=== PATIENT | female | born 1945 | race Caucasian/White ===

== ENCOUNTER 2016-08-07 10:59 | Observation (INO) ==
--- NOTE | 2016-08-07 11:35 | Emergency Department Note ---
Disposition Clinical Impression: Dizziness, Frail elderly, Vomiting, Headache, Hypertension, Abnormal chest x- ray, Abnormal urinalysis, Renal insufficiency Disposition: Admitted As Inpatient Forms: ED Satisfaction Letter General Adult HPI - General Chief complaint: ED Dizziness Stated complaint: Dizzy Time Seen by Provider: 08/07/16 11:10 Source: patient, family Limitations: no limitations - History of Present Illness HPI Narrative: 71-year-old female reports the emergency department complaining of dizziness. She is here with 2 daughters. The patient usually lives alone at home and takes care of herself and has no problems taking care of her activities of daily living. She reports she became dizzy somewhat yesterday with an things resolved and she felt better. Today she became dizzy again, her daughter's report she cannot stand up or walk a straight line. There is no history of fall. She was recently treated for the flu, and secondarily was treated for sinusitis. She describes a frontal facial pressure in the forehead and paranasal areas. She thinks she has sinusitis. She is describes a headache in this area. There is tenderness stiffness or rash. No bradly fevers reported. No urinary symptoms chest pain shortness of breath or abdominal pain no diarrhea. When the patient became dizzy she threw up some nonbloody material earlier today. There is no history of weakness or numbness in the arms or legs no bowel or bladder problems. No problems moving the arms or legs independently no slurred speech confusion or seizure. There is no history of anticoagulation therapy at this time. There is no history of bleeding. The patient medical history only includes hysterectomy sinus infection and hypertension. She has no personal history of coronary disease diabetes or CVA. Pain Scale: 0 - Related Data Allergies Allergy/AdvReac Type Severity Reaction Status Date / Time Sulfa (Sulfonamide Allergy Hives Verified 08/07/16 11:05 Antibiotics) All systems ED: reviewed and negative except as stated. Past Medical History - Past Medical History Medical history: Reports: hypertension, other Psychiatric history: Reports: no psych history - Social History Smoking Status: Never smoker Smokeless Tobacco Status: No Alcohol use: Reports: none Drug use: Reports: none Physical Exam - General Limitations: no limitations General appearance: alert, in no apparent distress - Head Head exam: atraumatic, normocephalic, normal inspection - Eye Eye exam: Present: normal appearance, PERRL, EOMI. Absent: scleral icterus, conjunctival injection, nystagmus, miosis, mydriasis - ENT ENT exam: normal exam, normal oropharynx, mucous membranes moist, TM's normal bilaterally, normal external ear exam - Neck Neck exam: Present: normal inspection, full ROM, trachea midline - Chest Chest inspection: Present: symmetric chest wall rise. Absent: tenderness - Respiratory Respiratory exam: Present: normal lung sounds bilaterally. Absent: respiratory distress - Cardiovascular Cardiovascular exam: Present: regular rate, normal rhythm, normal heart sounds - Abdominal Exam Abdominal exam: Present: soft, Non-Tender. Absent: tenderness, distention, guarding, rebound, rigidity, normal bowel sounds, pulsatile mass - Extremities Exam Extremities exam: Present: normal inspection, full ROM, normal capillary refill. Absent: tenderness, pedal edema, joint swelling, calf tenderness - Expanded Lower Extremity Exam Lower leg exam: Absent: Homans' sign Neurovascular/Tendon exam: Absent: motor deficit, sensory deficit, tendon deficit, extremity cold to touch - Back Exam Back exam: Present: normal inspection, full ROM. Absent: tenderness, CVA tenderness (R), CVA tenderness (L), vertebral tenderness - Neurological Exam Neurological exam: Present: alert, oriented X3, CN II-XII intact. Absent: motor sensory deficit - Psychiatric Psychiatric exam: Present: normal affect, normal mood - Skin Skin exam: Present: warm, dry, intact, normal color. Absent: rash, cyanosis, diaphoresis, erythema, pallor, mottled Course Vital Signs Temperature 97.7 F 08/07/16 11:02 Pulse Rate 73 08/07/16 11:02 Respiratory Rate 16 08/07/16 11:02 Blood Pressure 182/93 08/07/16 11:02 O2 Sat by Pulse Oximetry 97 08/07/16 11:02 Temperature 97.7 F 08/07/16 11:02 Pulse Rate 69 08/07/16 14:56 Respiratory Rate 12 08/07/16 14:56 Blood Pressure 142/83 08/07/16 14:56 O2 Sat by Pulse Oximetry 98 08/07/16 14:56 Oxygen Delivery Oxygen Delivery Room Air Medical Decision Making - [facility] Narrative Medical decision making narrative: The patient is elderly, is usually very active, and is developed new onset dizziness which started yesterday that improved then got worse today. She has associated vomiting and is not ambulating well. The patient has a history of hypertension, she is over 7 years old, has an abnormal urinalysis, abnormal chest x-ray and seems to be significantly symptomatic from the dizziness standpoint. Based on her potential vascular risks and presentation, I thought it would be appropriate to admit the patient to the hospital. Aspirin has been ordered. She appears to be stable at this time. The patient does not necessarily have dizziness when turning her head thot-un-prnt or when sitting up. She has not been able to ambulate normally. Vertebrobasilar issues could be considered, cardiac arrhythmia could be considered, possible recurrent TIA is also in the differential. He does have an abnormal urinalysis but does not display markers consistent with sepsis. The patient has an abnormal chest x- ray but no evidence of heart failure based on laboratory and EKG testing as well as troponin and symptomatology. I reviewed the case with the hospitalist on-call who is accepted the patient to their care. Both daughters prefer admission versus discharge particularly, the patient is agreeable. - Lab Data Lab results reviewed: Yes I reviewed the patient's lab results. Result diagrams: 08/07/16 11:55 08/07/16 11:55 Lab Results 08/07/16 08/07/16 08/07/16 Range/Units 11:15 11:55 11:55 WBC 9.2 (4.3-11.1) K/mcL RBC 3.88 (3.82-4.97) M/mcL Hgb 11.5 (11.5-15.4) g/dL Hct 34.7 L (35.3-44.9) % MCV 89.4 (83.0-100.0) fL MCH 29.6 (28.0-33.3) pg MCHC 33.1 (31.6-35.5) g/dL RDW 13.2 (11.5-14.5) % Plt Count 309 (140-400) K/mcL MPV 10.9 (9.4-12.4) fL Immature Gran % 0.5 (0-4) % Seg Neutrophils % 74.7 % Lymphocytes % 16.9 % Monocytes % 6.7 % Eosinophils % 0.8 % Basophils % 0.4 % Neutrophils # 6.9 (1.6-8.9) K/mcL Lymphocytes # 1.6 (0.6-4.6) K/mcL Monocytes # 0.6 (0.0-1.3) K/mcL Eosinophils # 0.1 (0.0-0.6) K/mcL Basophils # 0.0 (0.0-0.2) K/mcL PT 11.4 (9.4-12.1) Seconds INR 1.1 Sodium (136-145) mEq/L Potassium (3.5-4.5) mEq/L Chloride (98-109) mEq/L Carbon Dioxide (19-29) mEq/L BUN (7-20) mg/dL Creatinine (0.57-1.11) mg/dL Est GFR ( Amer) (> 60) Est GFR (Non-Af Amer) (> 60) BUN/Creatinine Ratio (6-26) Glucose (70-99) mg/dL Calculated Osmolality (280-300) Lactic Acid (0.5-2.2) mmol/L Calcium (8.6-10.8) mg/dL Total Bilirubin (0.2-1.2) mg/dL Direct Bilirubin (0.0-0.5) mg/dL Indirect Bilirubin (0.0-1.2) mg/dL AST (5-34) Units/L ALT (0-55) Units/L Alkaline Phosphatase (38-126) Units/L Troponin I (0-0.03) ng/mL C-Reactive Protein (Less than 5) mg/L B-Natriuretic Peptide (0-100) pg/mL Serum Total Protein (6.0-8.3) g/dL Albumin (3.5-5.0) g/dL Globulin (2.4-3.5) g/dL Albumin/Globulin Ratio (1.1-2.2) Urine Color Yellow (Yellow) Urine Clarity Cloudy A (Clear) Urine pH 6.5 (5.0-8.0) pH Units Ur Specific [place] 1.015 (1.010-1.025) Urine Protein Negative (Neg-Trace) mg/dL Urine Glucose (UA) Normal (Normal) mg/dL Urine Ketones Negative (Negative) mg/dL Urine Blood Negative (Negative) Urine Nitrite Negative (Negative) Urine Bilirubin Negative (Negative) Urine Urobilinogen Normal (Normal) mg/dL Ur Leukocyte Esterase Moderate H (Negative) Urine Microscopic RBC 0-3 (0-3) per hpf Urine Microscopic WBC 5-15 H (0-3) per hpf Ur Squamous Epith Cells Many H (None-Few) per lpf Urine Bacteria None Seen (None-Few) per hpf Hyaline Casts Few (None-Few) per lpf Ur Culture Indicated? YES A (NO) 08/07/16 08/07/16 08/07/16 Range/Units 11:55 11:55 11:55 WBC (4.3-11.1) K/mcL RBC (3.82-4.97) M/mcL Hgb (11.5-15.4) g/dL Hct (35.3-44.9) % MCV (83.0-100.0) fL MCH (28.0-33.3) pg MCHC (31.6-35.5) g/dL RDW (11.5-14.5) % Plt Count (140-400) K/mcL MPV (9.4-12.4) fL Immature Gran % (0-4) % Seg Neutrophils % % Lymphocytes % % Monocytes % % Eosinophils % % Basophils % % Neutrophils # (1.6-8.9) K/mcL Lymphocytes # (0.6-4.6) K/mcL Monocytes # (0.0-1.3) K/mcL Eosinophils # (0.0-0.6) K/mcL Basophils # (0.0-0.2) K/mcL PT (9.4-12.1) Seconds INR Sodium 138 (136-145) mEq/L Potassium 4.5 (3.5-4.5) mEq/L Chloride 105 (98-109) mEq/L Carbon Dioxide 20 (19-29) mEq/L BUN 13 (7-20) mg/dL Creatinine 1.24 H (0.57-1.11) mg/dL Est GFR ( Amer) 51 L (> 60) Est GFR (Non-Af Amer) 42 L (> 60) BUN/Creatinine Ratio 10 (6-26) Glucose 127 H (70-99) mg/dL Calculated Osmolality 288 (280-300) Lactic Acid 1.2 (0.5-2.2) mmol/L Calcium 10.0 (8.6-10.8) mg/dL Total Bilirubin 0.4 (0.2-1.2) mg/dL Direct Bilirubin 0.2 (0.0-0.5) mg/dL Indirect Bilirubin 0.2 (0.0-1.2) mg/dL AST 22 (5-34) Units/L ALT 14 (0-55) Units/L Alkaline Phosphatase 99 (38-126) Units/L Troponin I 0.01 (0-0.03) ng/mL C-Reactive Protein 3 (Less than 5) mg/L B-Natriuretic Peptide (0-100) pg/mL Serum Total Protein 7.5 (6.0-8.3) g/dL Albumin 4.0 (3.5-5.0) g/dL Globulin 3.5 (2.4-3.5) g/dL Albumin/Globulin Ratio 1.1 (1.1-2.2) Urine Color (Yellow) Urine Clarity (Clear) Urine pH (5.0-8.0) pH Units Ur Specific [place] (1.010-1.025) Urine Protein (Neg-Trace) mg/dL Urine Glucose (UA) (Normal) mg/dL Urine Ketones (Negative) mg/dL Urine Blood (Negative) Urine Nitrite (Negative) Urine Bilirubin (Negative) Urine Urobilinogen (Normal) mg/dL Ur Leukocyte Esterase (Negative) Urine Microscopic RBC (0-3) per hpf Urine Microscopic WBC (0-3) per hpf Ur Squamous Epith Cells (None-Few) per lpf Urine Bacteria (None-Few) per hpf Hyaline Casts (None-Few) per lpf Ur Culture Indicated? (NO) 08/07/16 Range/Units 11:55 WBC (4.3-11.1) K/mcL RBC (3.82-4.97) M/mcL Hgb (11.5-15.4) g/dL Hct (35.3-44.9) % MCV (83.0-100.0) fL MCH (28.0-33.3) pg MCHC (31.6-35.5) g/dL RDW (11.5-14.5) % Plt Count (140-400) K/mcL MPV (9.4-12.4) fL Immature Gran % (0-4) % Seg Neutrophils % % Lymphocytes % % Monocytes % % Eosinophils % % Basophils % % Neutrophils # (1.6-8.9) K/mcL Lymphocytes # (0.6-4.6) K/mcL Monocytes # (0.0-1.3) K/mcL Eosinophils # (0.0-0.6) K/mcL Basophils # (0.0-0.2) K/mcL PT (9.4-12.1) Seconds INR Sodium (136-145) mEq/L Potassium (3.5-4.5) mEq/L Chloride (98-109) mEq/L Carbon Dioxide (19-29) mEq/L BUN (7-20) mg/dL Creatinine (0.57-1.11) mg/dL Est GFR ( Amer) (> 60) Est GFR (Non-Af Amer) (> 60) BUN/Creatinine Ratio (6-26) Glucose (70-99) mg/dL Calculated Osmolality (280-300) Lactic Acid (0.5-2.2) mmol/L Calcium (8.6-10.8) mg/dL Total Bilirubin (0.2-1.2) mg/dL Direct Bilirubin (0.0-0.5) mg/dL Indirect Bilirubin (0.0-1.2) mg/dL AST (5-34) Units/L ALT (0-55) Units/L Alkaline Phosphatase (38-126) Units/L Troponin I (0-0.03) ng/mL C-Reactive Protein (Less than 5) mg/L B-Natriuretic Peptide 43 (0-100) pg/mL Serum Total Protein (6.0-8.3) g/dL Albumin (3.5-5.0) g/dL Globulin (2.4-3.5) g/dL Albumin/Globulin Ratio (1.1-2.2) Urine Color (Yellow) Urine Clarity (Clear) Urine pH (5.0-8.0) pH Units Ur Specific [place] (1.010-1.025) Urine Protein (Neg-Trace) mg/dL Urine Glucose (UA) (Normal) mg/dL Urine Ketones (Negative) mg/dL Urine Blood (Negative) Urine Nitrite (Negative) Urine Bilirubin (Negative) Urine Urobilinogen (Normal) mg/dL Ur Leukocyte Esterase (Negative) Urine Microscopic RBC (0-3) per hpf Urine Microscopic WBC (0-3) per hpf Ur Squamous Epith Cells (None-Few) per lpf Urine Bacteria (None-Few) per hpf Hyaline Casts (None-Few) per lpf Ur Culture Indicated? (NO) - Radiology Data Radiology results reviewed: Yes I reviewed the patient's radiology results.
[2016-08-07] MEDS ORDERED: 0.9 % Sodium Chloride 1,000 ML IVC SCH (11:45)
[2016-08-07 11:50] LABS: Bilirubin,Urine Negative (Negative); Blood,Urine Negative (Negative); Clarity,Urine Cloudy (Clear); Color,Urine Yellow (Yellow); Glucose,Urine (UA) Normal (Normal); Ketones,Urine Negative (Negative); Leukocyte Esterase,Urine Moderate (Negative); Nitrite,Urine Negative (Negative); PH,Urine 6.5 pH Units (5.0-8.0); Protein,Urine Negative (Neg-Trace); Specific Gravity,Urine 1.015 (1.010-1.025); Urobilinogen,Urine Normal (Normal)
[2016-08-07 11:52] LABS: Bacteria,Urine None Seen per hpf (None-Few); Hyaline Casts,Urine Few per lpf (None-Few); Squamous Epithelial Cell,Urine Many per lpf (None-Few)
[2016-08-07 11:54] LABS: RBC,Urine 0-3 per hpf (0-3)
[2016-08-07 12:13] LABS: Basophils % 0.4 %; Eosinophils # 0.1 K/mcL (0.0-0.6); Eosinophils % 0.8 %; Hematocrit 34.7 % (35.3-44.9); Hemoglobin 11.5 g/dL (11.5-15.4); Immature Granulocytes % 0.5 % (0-4); Lymphocytes # 1.6 K/mcL (0.6-4.6); Lymphocytes % 16.9 %; Mean Corpuscular HGB Conc 33.1 g/dL (31.6-35.5); Mean Corpuscular Hemoglobin 29.6 pg (28.0-33.3); Mean Corpuscular Volume 89.4 fL (83.0-100.0); Mean Platelet Volume 10.9 fL (9.4-12.4); Monocytes # 0.6 K/mcL (0.0-1.3); Monocytes % 6.7 %; Neutrophils # 6.9 K/mcL (1.6-8.9); Platelet Count 309 K/mcL (140-400); Red Blood Count 3.88 M/mcL (3.82-4.97); Red Cell Distribution Width 13.2 % (11.5-14.5); Segmented Neutrophils % 74.7 %
[2016-08-07 12:15] LABS: INR 1.1; Prothrombin Time 11.4 Seconds (9.4-12.1)
[2016-08-07 12:33] LABS: Albumin/Globulin Ratio 1.1 (1.1-2.2); Bilirubin,Direct 0.2 mg/dL (0.0-0.5); Bilirubin,Indirect 0.2 mg/dL (0.0-1.2); Bilirubin,Total 0.4 mg/dL (0.2-1.2); Globulin 3.5 g/dL (2.4-3.5); Potassium 4.5 mEq/L (3.5-4.5); Total Protein 7.5 g/dL (6.0-8.3)
[2016-08-07] MEDS ORDERED: Aspirin 325 MG TABLET PO ONE (15:07)
[2016-08-07] MEDS ORDERED: Naloxone 0.4 MG/ML INJ IVP PRN (16:30)
[2016-08-07] MEDS ORDERED: Mag Hydrox/Al Hydrox/Simeth 30 ML UDC PO PRN (16:31)
[2016-08-07] MEDS ORDERED: MOM Conc 10 ML UD.LIQ PO PRN (16:31)
[2016-08-07] MEDS ORDERED: *HR* HYDROcodone/Acet 5/325 mg TABLET PO PRN (16:31)
[2016-08-07] MEDS: 0.9 % Sodium Chloride 1,000 ML IVC SCH (16:55)
--- NOTE | 2016-08-07 18:40 | Internal Med History&Physical ---
<Breanna Ramirez Williams - Last Filed: 08/07/16 19:14> Date of Encounter: 08/07/16 Time of Encounter: 17:25 Assessment and Plan (1) Dizziness Current visit: Yes Status: Acute Pt has been treated within the last 10 days for sinusitis with amoxicillin, however symptoms did not improve. She still has PND and some mild frontal sinus pressure. TM have good light reflex cally and are without a fluid level. Will start patient on Loratadine 10mg po and Flonase 50mcg/spray once daily. CT does not show sinusitis or acute intracranial abnormality, so there is no real need for further treatment with antibiotics. Pt has mitral valve stenosis and has not had an echo for at least 3 years, and family questioned about carotid dopplers. Echo carotid dopplers Claritin/Flonase Indirect Sales Exec labs Monitor VS (2) Abnormal chest x-ray Current visit: Yes Status: Chronic Chest xray today shows mild enlargement of the cardiac silhouette, but we have no prior studies to compare this to. Pt is unaware of this finding previously. Plan as above (3) Hypertension Current visit: Yes Status: Acute Stable. Continue Norvasc 5mg po daily Lisinopril 40mg po daily Toprol XL 25mg PO DAILY Monitor VS q4h Telemetry Qualifiers: Hypertension type: essential hypertension Qualified Code(s): I10 - Essential (primary) hypertension (4) Vomiting Current visit: Yes Status: Acute One episode of vomiting today due to dizziness. Prn Zofran ordered. Qualifiers: Vomiting type: unspecified Vomiting Intractability: non-intractable Nausea presence: with nausea Qualified Code(s): R11.2 - Nausea with vomiting, unspecified (5) Mitral valve stenosis Current visit: Yes Status: Acute Pt sees cardiology at [facility], but has not been there for at least 3 years. Echo ordered. Pt denies cp or sob. Chest xray today shows mild enlargement of the cardiac silhouette, but there are no prior studies to compare it to. Qualifiers: Cardiac valve disease etiology: nonrheumatic Qualified Code(s): I34.2 - Nonrheumatic mitral (valve) stenosis Internal Medicine - H&P: HPI Chief complaint: dizziness x 2 days Plans for Post Hospital Care: Home History of present illness: Ms. Soriano is a 71 year old female with a history of HTN and mitral valve stenosis. She sees cardiology at [facility], but has not been there for at least 3 years. Pt presents to ED today with c/o dizziness x 2 days and vomiting x 1 today due to dizziness. All imaging studies done in ED are negative, except CXR shows mild enlargement of cardiac silhouette, but no prior studies to compare it to. Pt was recently treated for sinusitis with amoxicillin by PCP. She has had PND, but denies frontal sinus tenderness, cough, castro, sob, or chest pain, no peripheral edema. Cally TM with good light reflex and no fluid level. Past Med Surg Social Fam HX - Past Medical History Medical history: hypertension, other Psychiatric history: no psych history - Social History Smoking Status: Never smoker Smokeless Tobacco Status: No Alcohol use: none Drug use: none - Family History Mother Living Status: Age at : 71 Cause of : CA Hx Family Cardiac Disorders: Yes (CA, HTN) Hx Family Respiratory Disorders: No Hx Family Cancer: No Hx Family GI Disorders: No Hx Family Genitourinary Disorders: No Hx Family Endocrine Disorder: Yes (DM) Hx Family Musculoskeletal Disorders: No Hx Family Neuromuscular Disorders: No Hx Family Neurologic Disorders: No Hx Family HEENT Disorders: No Hx Family Autoimmune Disorders: No Hx Family Reproductive Disorders: No Hx Family Psychosocial Disorders: No Hx Family Medical Disorders: No Father Living Status: Age at : 49 Cause of : heart troule Hx Family Cardiac Disorders: Yes (dropsy) Hx Family Respiratory Disorders: No Hx Family Cancer: No Hx Family GI Disorders: No Hx Family Genitourinary Disorders: No Hx Family Endocrine Disorder: No Hx Family Musculoskeletal Disorders: No Hx Family Neuromuscular Disorders: No Hx Family Neurologic Disorders: No Hx Family HEENT Disorders: No Hx Family Autoimmune Disorders: No Hx Family Reproductive Disorders: No Hx Family Psychosocial Disorders: No Hx Family Medical Disorders: No Internal Medicine - H&P: Meds Amlodipine [Norvasc] 5 mg PO DAILY 08/07/16 [History] Aspirin [Lo-Dose Aspirin EC] 81 mg PO DAILY 08/07/16 [History] Lisinopril [Zestril] 40 mg PO DAILY 08/07/16 [History] Metoprolol XL (24 HR) Succ [Toprol XL] 25 mg PO DAILY 08/07/16 [History] Vitamin E Acetate [Vitamin E] 400 unit PO DAILY 08/07/16 [History] Allergies Sulfa (Sulfonamide Antibiotics) Allergy (Verified 08/07/16 11:05) Hives All Systems PM: A 10-system review of systems was performed and is negative for pertinent findings except as documented above in the HPI. - Constitutional Constitutional: no chills, no fatigue, no fever(s), no falls, no weakness - EENT Eyes: no blurry vision, no discharge Nose, mouth and throat: post-nasal drip, sinus pain, sinus pressure, no dental pain, no epistaxis, no facial pain, no hoarseness, no nasal discharge, no nasal obstruction, no sore throat - Cardiovascular Cardiovascular ROS IM: no chest pain, no dyspnea, no edema, no palpitations - Respiratory Respiratory: no chest congestion, no excessive phlegm production, no change in phlegm color, no pain with cough - Gastrointestinal Gastrointestinal: nausea, vomiting, no diarrhea - Genitourinary Genitourinary: no dysuria, no urinary frequency, no urinary hesitancy, no urinary incontinence, no urinary urgency - Neurological Neurological ROS: dizziness - Constitutional Vitals: Temp Pulse Resp BP Pulse Ox 97.9 F 67 18 155/77 96 08/07/16 16:35 08/07/16 16:35 08/07/16 16:35 08/07/16 16:35 08/07/16 16:35 General appearance: Present: cooperative, A&O X 3, pleasant, no acute distress - Head Head exam: Present: atraumatic, normal inspection - Eye Eye exam: Present: normal appearance, PERRL, conjuntiva pink. Absent: nystagmus - ENT ENT exam: Present: mucous membranes moist, normal exam, normal oropharynx, TM's normal bilaterally - Neck Neck exam general surgery: Present: normal inspection. Absent: lymphadenopathy , tenderness - Respiratory Respiratory exam: Absent: chest wall tenderness, decreased breath sounds, rhonchi, wheezes - Cardiovascular Cardiovascular exam: Present: RRR, +S1, +S2 - GI/Abdominal GI/Abdominal exam: Present: normal bowel sounds, soft. Absent: tenderness - Extremities Exam Extremities exam: Present: full ROM, normal capillary refill, normal inspection , warm, radial pulses palpable and symetrical. Absent: calf tenderness, cyanotic, joint swelling, pedal edema, tenderness - Neurological Exam Neurological exam: Present: alert, oriented X3, strengths equal and symetr throughout Internal Med - H&P Results - Labs CBC & Chem 7: 08/07/16 11:55 08/07/16 11:55 <FlakoAngela E - Last Filed: 08/08/16 11:14> Date of Encounter: 08/08/16 Internal Medicine - H&P: HPI History of present illness: Ms. Soriano is a 71 year old female All Systems PM: A 10-system review of systems was performed and is negative for pertinent findings except as documented above in the HPI. - Constitutional Vitals: Temp Pulse Resp BP Pulse Ox 98.1 F 59 16 144/76 98 08/08/16 06:59 08/08/16 06:59 08/08/16 06:59 08/08/16 06:59 08/08/16 06:59 Internal Med - H&P Results - Labs CBC & Chem 7: 08/08/16 04:51 08/08/16 04:51 Labs: Short CBC 08/08/16 Range/Units 04:51 WBC 6.5 (4.3-11.1) K/mcL Hgb 10.1 L (11.5-15.4) g/dL Hct 30.4 L (35.3-44.9) % Plt Count 294 (140-400) K/mcL Neutrophils # 3.2 (1.6-8.9) K/mcL BMP 08/08/16 04:51 Sodium 142 Potassium 4.2 Chloride 112 H Carbon Dioxide 21 BUN 13 Creatinine 1.16 H Glucose 86 Calcium 9.3 - Attending Attestation I examined this patient and reviewed laboratory, imaging and all diagnostic data 08/07/16. My medical decision-making was reviewed with LOU Ramirez. I agree with the documented findings, disposition and treatment plan as described above. 71-year-old female with past medical history of hypertension and mitral valve stenosis who developed severe dizziness, difficulty in ambulation and one episode of vomiting. During my exam patient was imbalance while ambulating. CT of the head was negative. Patient was just recently prescribed gabapentin for peripheral neuropathy, she has started taking it last Tuesday then Tuesday and last dose was Tuesday. She also took amoxicillin for 5 days due to a sinus infection, last dose Tuesday. Her symptoms could be secondary to mild dehydration due to up sinusitis +/- recent use of gabapentin. Will continue supportive therapy with IV fluids, meclizine, loratadine and Flonase. Check Doppler of carotids and echocardiogram. PT/OT.
[2016-08-08 05:40] LABS: Basophils # 0.1 K/mcL (0.0-0.2); Basophils % 0.9 %; Eosinophils # 0.2 K/mcL (0.0-0.6); Eosinophils % 2.8 %; Hematocrit 30.4 % (35.3-44.9); Hemoglobin 10.1 g/dL (11.5-15.4); Immature Granulocytes % 0.3 % (0-4); Lymphocytes # 2.4 K/mcL (0.6-4.6); Lymphocytes % 36.2 %; Mean Corpuscular HGB Conc 33.2 g/dL (31.6-35.5); Mean Corpuscular Hemoglobin 29.7 pg (28.0-33.3); Mean Corpuscular Volume 89.4 fL (83.0-100.0); Mean Platelet Volume 11.3 fL (9.4-12.4); Monocytes # 0.7 K/mcL (0.0-1.3); Monocytes % 10.9 %; Neutrophils # 3.2 K/mcL (1.6-8.9); Platelet Count 294 K/mcL (140-400); Red Cell Distribution Width 13.2 % (11.5-14.5); Segmented Neutrophils % 48.9 %
[2016-08-08 05:54] LABS: Calcium 9.3 mg/dL (8.6-10.8); Potassium 4.2 mEq/L (3.5-4.5)
[2016-08-08] MEDS: Fluticasone Propionate Nasal 50 MCG/SPRAY BOTTLE NS SCH (09:19)
[2016-08-08] MEDS: Metoprolol XL (24 HR) Succ 25 MG TAB.ER.24H PO SCH (09:20)
[2016-08-08] MEDS: Aspirin Enteric Coated 81 MG Tablet PO SCH (09:20)
[2016-08-08] MEDS: Lisinopril 20 MG TABLET PO SCH (09:20)
[2016-08-08] MEDS: amLODIPine 5 MG TABLET PO SCH (09:20)
[2016-08-08] MEDS: Loratadine 10 MG TABLET PO SCH (09:20)
[2016-08-08] MEDS: Acetaminophen 325 MG TABLET PO PRN ×2 (09:23→19:29)
--- NOTE | 2016-08-08 12:59 | ECHO - Doppler Report ---
Echocardiogram Name: Gloria Soriano Date of Study: 08/08/2016 Date: 1945 Ht: 62.0 in Medical Record#: [id number] Age: 71 Wt: 149.0 lb Gender: Female BSA: 1.69 Order #: [id number] Location: [facility] Room #: [id number] Reading Physician: Deloris Covington DO Batch Blender: Laquita Ness RVT, [facility] Ordering Physician: Breanna Ramirez CNP Primary Physician: Cindy Rashid DO Indications: dizziness Impressions: LVEF 65%. Normal left ventricular size and systolic function. There is evidence of mild diastolic dysfunction of the left ventricle. Normal right ventricular size and function. Mild tricuspid regurgitation. No pulmonary hypertension. Left Ventricular Wall Motion: Rest Echo Findings All wall segments showed normal motion. Findings: Study Quality * Technically adequate exam. ECG Findings * Normal sinus rhythm. Left Ventricle * LVEF 65%. * Mild left ventricular diastolic dysfunction. * Normal LV chamber size, wall thickness and function. Left Atrium * Normal left atrial size. Mitral Valve * Normal mitral valve structure. * No mitral regurgitation. * No mitral stenosis. Aortic Valve * No aortic regurgitation. * Trileaflet aortic valve. * Normal aortic valve structure. * No aortic stenosis. Tricuspid Valve * Normal tricuspid valve structure. * Mild tricuspid regurgitation. * Estimated RA pressure is 3 mmHg. * Estimated RVSP is 25 mmHg. * No pulmonary hypertension. Pulmonic Valve * Pulmonic valve is not well visualized. * No pulmonic stenosis. * Trace pulmonic regurgitation. Pulmonary Artery * Pulmonary artery not well visualized. Right Ventricle * Normal right ventricular structure and function. Right Atrium * Normal right atrial size. Interatrial Septum * No evidence of PFO by color Doppler. IVC * Normal IVC dimensions and inspiratory collapse. Pericardium * There is no pericardial effusion present. Aorta * Normally sized aortic root. History Hypertension Family History of CAD Measurements: BP: 144/ 76 2D Normal Values RVIDd: 3.10 cm <2.7 cm IVSd: 1.20 cm 0.6 - 1.0 cm LVIDd: 3.80 cm 3.7 - 5.6 cm LVPWd: .90 cm 0.6 - 1.1 cm LVIDs: 3.00 cm 1.5 - 3.6 cm AO: 2.60 cm < 4.0 cm LA: 3.60 cm 2.0 - 4.0cm %FS: 21.10 cm >25 % LA volume: 45 Mitral Valve Dec Time:335.00 msec Peak E:.88 m/sec Peak A:.71 m/sec E/A Ratio:1.2 Peak E' Lat Valentino:8.19 cm/s Peak E' Med Valentino:7.12 cm/s E/E' Lat Ratio:10.8 E/E' Med Ratio:12.4 Tricuspid Valve TV Regurg Peak Grad: 22.00mmHg TV Regurg Peak Valentino: 2.33m/sec Updated by Deloris Covington on 08/08/2016 12:52:59 PM electronically signed on 08/08/2016 12:53:56 PM with status of Final Wall Motion Faustin: 1=Normal, 2=Hypokinesis, 3=Akinesis, 4=Dyskinesis, 5=Aneurysmal, 6=Hyperkinetic, X=Not Visualized (Blank)=Missing
[2016-08-08] MEDS: 0.9 % Sodium Chloride 1,000 ML IVC SCH (15:52)
--- NOTE | 2016-08-08 16:03 | Internal Med Progress Note ---
Date of Encounter: 08/08/16 Time of Encounter: 09:00 - Assessment and plan (1) DVT prophylaxis Current Visit: Yes Status: Acute Assessment and plan: Heparin subcutaneously (2) Dizziness Current Visit: Yes Status: Acute Assessment and plan: Etiology is undetermined. We will continue closely monitor patient with continuous cardiac monitoring to rule out arrhythmia. Echo result are remarkable. Carotid duplex shows lt side stenosis, vascular consult. (3) Hypertension Current Visit: Yes Status: Acute Assessment and plan: BP is stable continue home medications Qualifiers: Hypertension type: essential hypertension Qualified Code(s): I10 - Essential (primary) hypertension (4) Mitral valve stenosis Current Visit: Yes Status: Acute Assessment and plan: No shown on repeated Echo. Pt is asymptomatic. Qualifiers: Cardiac valve disease etiology: nonrheumatic Qualified Code(s): I34.2 - Nonrheumatic mitral (valve) stenosis (5) Renal insufficiency Current Visit: Yes Status: Acute Assessment and plan: Baseline Cr is unknown. Will encourage hydration and f/u renal function. (6) Carotid stenosis Current Visit: Yes Status: Acute Assessment and plan: Vascular consult. Qualifiers: Laterality: left Qualified Code(s): I65.22 - Occlusion and stenosis of left carotid artery - Time Spent With Patient 25 - 35 minutes - Subjective Interval history: Patient is a 71-year-old female admitted for dizziness. Her past medical history is significant for hypertension and mitral valve stenosis. Patient was seen and examined. She is awake alert, oriented 3. Denies dizziness, lightheadedness, or vertigo. No chest pain, no shortness of breath. Vitals are stable. Echo done, not shown significant MS. duplex carotid shows left side 60-79% stenosis. Vascular surgery consult was called. Will continue closely monitor patient to rule out arrhythmia. - Constitutional Vitals: Temp Pulse Resp BP Pulse Ox 98.1 F 65 16 110/61 96 08/08/16 15:16 08/08/16 15:16 08/08/16 15:16 08/08/16 15:16 08/08/16 15:16 General appearance: Present: cooperative, A&O X 3, pleasant, no acute distress - Head Head exam: Present: atraumatic, normocephalic - Eye Eye exam: Present: PERRL, conjuntiva pink, sclera anicteric Pupils: Present: PERRL - Neck Neck exam general surgery: Present: supple, trachea midline. Absent: lymphadenopathy - Respiratory Respiratory exam: Present: CTAB. Absent: accessory muscle use, rales, rhonchi, wheezes - Cardiovascular Cardiovascular exam: Present: RRR, +S1, +S2. Absent: diastolic murmur, gallop, rubs, systolic murmur - GI/Abdominal GI/Abdominal exam: Present: normal bowel sounds, soft, no peritoneal signs. Absent: distended, tenderness - Extremities Exam Extremities exam: Present: warm, radial pulses palpable and symetrical. Absent : calf tenderness, cyanotic, pedal edema - Neurological Exam Neurological exam: Present: CN II-XII intact, oriented X3, no focal deficits. Absent: pronater drift, facial droop, speech deficit - Skin Skin exam: Present: dry, intact Internal Medicine: Result - Labs CBC & Chem 7: 08/08/16 04:51 08/08/16 04:51 Labs: Short CBC 08/08/16 Range/Units 04:51 WBC 6.5 (4.3-11.1) K/mcL Hgb 10.1 L (11.5-15.4) g/dL Hct 30.4 L (35.3-44.9) % Plt Count 294 (140-400) K/mcL Neutrophils # 3.2 (1.6-8.9) K/mcL BMP 08/08/16 04:51 Sodium 142 Potassium 4.2 Chloride 112 H Carbon Dioxide 21 BUN 13 Creatinine 1.16 H Glucose 86 Calcium 9.3 - ABG Interpretation ABG results: PT/INR, D-dimer PT 11.4 Seconds (9.4-12.1) 08/07/16 11:55 Consult Discharge Plan - Plan Referrals: Cindy Rashid DO [Primary Care Provider] -
[2016-08-08] MEDS: *HR* Heparin 5,000 UNIT/ML VIAL SQ SCH ×2 (17:43→18:48)
[2016-08-09 05:53] LABS: Basophils # 0.1 K/mcL (0.0-0.2); Basophils % 0.8 %; Eosinophils # 0.3 K/mcL (0.0-0.6); Eosinophils % 4.2 %; Hematocrit 30.9 % (35.3-44.9); Hemoglobin 10.3 g/dL (11.5-15.4); Immature Granulocytes % 0.3 % (0-4); Lymphocytes # 2.4 K/mcL (0.6-4.6); Lymphocytes % 32.8 %; Mean Corpuscular HGB Conc 33.3 g/dL (31.6-35.5); Mean Corpuscular Volume 90.1 fL (83.0-100.0); Mean Platelet Volume 11.8 fL (9.4-12.4); Monocytes # 0.8 K/mcL (0.0-1.3); Monocytes % 10.4 %; Neutrophils # 3.8 K/mcL (1.6-8.9); Platelet Count 285 K/mcL (140-400); Red Blood Count 3.43 M/mcL (3.82-4.97); Red Cell Distribution Width 13.2 % (11.5-14.5); Segmented Neutrophils % 51.5 %
[2016-08-09 06:03] LABS: Calcium 9.3 mg/dL (8.6-10.8); Potassium 4.3 mEq/L (3.5-4.5)
--- NOTE | 2016-08-09 07:19 | Carotid Imaging Report ---
Carotid Duplex Patient Name:Gloria Soriano Order Number:[id number] Procedure Date:08/08/2016 Date:1945ge:71 yrs Gender:Female Lt BP:144 / 76 mmHg Location:[facility] Room #: 3B11 Dowel Pin Man:Laquita Ness, RVT, RDCS Referring MD:Breanna Ramirez CNP splitter hand:DO Agapito Monae MD:Salty Amado MD Primary Indications:dizziness Risk Factors Yes/No Hypertension Yes Smoking Current No Impressions: The right carotid artery has minimal plaque throughout. The left internal carotid artery has a 60-79% stenosis. Recommendations: Risk factor reduction. Further evaluation recommended if clinically indicated. Follow-up carotid duplex in 1 year. Findings Carotid Duplex: Right: The right proximal common carotid artery has a PSV of 108 cm/s and a EDV of 17 cm/s. The right mid common carotid artery has a PSV of 101 cm/s and a EDV of 18 cm/s. The right distal common carotid artery has a PSV of 98 cm/s and a EDV of 21 cm/s. There is nonstenotic plaque in the right bifurcation with a PSV of 97 cm/s and a EDV of 27 cm/s. There is smooth heterogeneous plaque. There is nonstenotic plaque in the right proximal internal carotid artery with a PSV of 92 cm/s and a EDV of 24 cm/s. There is smooth heterogeneous plaque. The right mid internal carotid artery has a PSV of 83 cm/s and a EDV of 27 cm/s. The right distal internal carotid artery has a PSV of 63 cm/s and a EDV of 19 cm/s. The right eca has a PSV of 134 cm/s and a EDV of 20 cm/s. The right vertebral artery has a PSV of 56 cm/s and a EDV of 17 cm/s. Left: The left proximal common carotid artery has a PSV of 98 cm/s and a EDV of 24 cm/s. The left mid common carotid artery has a PSV of 81 cm/s and a EDV of 19 cm/s. The left distal common carotid artery has a PSV of 85 cm/s and a EDV of 23 cm/s. There is nonstenotic plaque in the left bifurcation with a PSV of 65 cm/s and a EDV of 17 cm/s. There is smooth heterogeneous plaque. There is 40-59% stenosis in the left proximal internal carotid artery with a PSV of 144 cm/s and a EDV of 31 cm/s. There is smooth, heterogeneous calcified plaque. The left mid internal carotid artery has a PSV of 85 cm/s and a EDV of 25 cm/s. There is 60-79% stenosis in the left distal internal carotid artery with a PSV of 169 cm/s and a EDV of 50 cm/s. There is smooth homogeneous plaque. The left eca has a PSV of 115 cm/s and a EDV of 26 cm/s. The left vertebral artery has a PSV of 30 cm/s and a EDV of 10 cm/s. Carotid Results Right PSV EDV Assessment Proximal CCA 108 17 Normal Mid CCA 101 18 Normal Distal CCA 98 21 Normal Bifurcation 97 27 Non Stenotic Plaque Proximal ICA 92 24 Non Stenotic Plaque Mid ICA 83 27 Normal Distal ICA 63 19 Normal ECA 134 20 Normal Vertebral Artery 56 17 Normal Left PSV EDV Assessment Proximal CCA 98 24 Normal Mid CCA 81 19 Normal Distal CCA 85 23 Normal Bifurcation 65 17 Non Stenotic Plaque Proximal ICA 144 31 40-59% stenosis Mid ICA 85 25 Normal Distal ICA 169 50 60-79% stenosis ECA 115 26 Normal Vertebral Artery 30 10 Normal Ratio's Right ICA/CCA Ratio: 0.82 Left ICA/CCA Ratio: 2.09 Updated by Salty Amado MD on 08/09/2016 7:13:03 AM electronically signed on 08/09/2016 7:13:37 AM with status of Final
[2016-08-09] MEDS: *HR* Heparin 5,000 UNIT/ML VIAL SQ SCH (07:33)
[2016-08-09 08:11] VITALS: BP 153/82
--- NOTE | 2016-08-09 08:25 | Vascular/Endovasc Consult Note ---
Date of Encounter: 08/09/16 Time of Encounter: 07:30 Assessment and Plan (1) Carotid stenosis Status: Chronic The patient has had episodes of intermittent headaches associated with dizziness. She reports that her symptoms can be disabling at times. She denies symptoms of CVA, TIA or amaurosis fugax. She has a LICA 60-79% stenosis. She was counseled regarding atherosclerotic risk factor reduction. She was advised to continue with daily ASA. SHe was instructed to seek medical attenion if her symptoms return or if she experiences signs or symptoms of CVA, TIA or amaurosis fugax. Continued surveillence is recommended. She will follow -up in clinic in 6 months with a carotid duplex. She is okay for discharge from a vascular surgery perspective. Qualifiers: Laterality: left Qualified Code(s): I65.22 - Occlusion and stenosis of left carotid artery (2) Hypertension Status: Chronic The patient was counseled regarding aatherosclerotic risk factor reduction. Qualifiers: Hypertension type: essential hypertension Qualified Code(s): I10 - Essential (primary) hypertension (3) Mitral valve stenosis Status: Chronic Qualifiers: Cardiac valve disease etiology: nonrheumatic Qualified Code(s): I34.2 - Nonrheumatic mitral (valve) stenosis - History of Present Illness Consult date: 08/09/16 Requesting physician: Delmis Horan Consult reason: Carotid stenosis Chief complaint: Dizziness History of present illness: Ms. Soriano is a 71 year old female with a history of hypertension and mitral valve stenosis who presented to [facility] with a headache and severe disabling dizziness and vomiting. She as admitted and treated for sinusitis. As part of her evaluation, she underwent a carotid duplex. She was noted to have significant stenosis and vascular surger was consulted for further evaluation. The patient states that since admission her dizziness has subsided. She denies any prior episodes of CVA, TIA o amaurosis fugax. She denies any speech deficits or visual disturbances. She denies any chest pain or shortness of breath. Past Med Surg Social Fam HX - Past Medical History Medical history: hypertension, other Psychiatric history: no psych history - Social History Smoking Status: Never smoker Smokeless Tobacco Status: No Alcohol use: none Drug use: none - Family History Mother Living Status: Age at : 71 Cause of : AL Hx Family Cardiac Disorders: Yes (AL, HTN) Hx Family Respiratory Disorders: No Hx Family Cancer: No Hx Family GI Disorders: No Hx Family Genitourinary Disorders: No Hx Family Endocrine Disorder: Yes (DM) Hx Family Musculoskeletal Disorders: No Hx Family Neuromuscular Disorders: No Hx Family Neurologic Disorders: No Hx Family HEENT Disorders: No Hx Family Autoimmune Disorders: No Hx Family Reproductive Disorders: No Hx Family Psychosocial Disorders: No Hx Family Medical Disorders: No Father Living Status: Age at : 49 Cause of : heart troule Hx Family Cardiac Disorders: Yes (dropsy) Hx Family Respiratory Disorders: No Hx Family Cancer: No Hx Family GI Disorders: No Hx Family Genitourinary Disorders: No Hx Family Endocrine Disorder: No Hx Family Musculoskeletal Disorders: No Hx Family Neuromuscular Disorders: No Hx Family Neurologic Disorders: No Hx Family HEENT Disorders: No Hx Family Autoimmune Disorders: No Hx Family Reproductive Disorders: No Hx Family Psychosocial Disorders: No Hx Family Medical Disorders: No Medications and Allergies Amlodipine [Norvasc] 5 mg PO DAILY 08/07/16 [History] Aspirin [Lo-Dose Aspirin EC] 81 mg PO DAILY 08/07/16 [History] Lisinopril [Zestril] 40 mg PO DAILY 08/07/16 [History] Metoprolol XL (24 HR) Succ [Toprol Xl] 25 mg PO DAILY 08/07/16 [History] Vitamin E Acetate [Vitamin E] 400 unit PO DAILY 08/07/16 [History] Meclizine [Antivert] 25 mg PO TID PRN #10 tablet 08/09/16 [Rx] Allergies Sulfa (Sulfonamide Antibiotics) Allergy (Verified 08/07/16 11:05) Hives All Systems Review: A 10-system review of systems was performed and is negative for pertinent findings except as documented above in the HPI. - Constitutional Constitutional: headache(s), no anorexia, no chills, no fever(s) - EENT Eyes: no blurred vision, no loss of vision - Cardiovascular Cardiovascular: no chest pain at rest, no chest pain with exertion, no dyspnea at rest, no dyspnea on exertion - Neurological Neurological: dizziness, no abnormal speech, no focal weakness, no numbness, no syncope Exam Vital Signs, Last 4 Hours Temp Pulse Resp BP Pulse Ox 08/09/16 08:09 97.7 F 59 17 153/82 98 General: Present: Conversant, No Apparent Distress HEENT: Present: Atraumatic, Normocephaly, Trachea midline, Pupils equal Neck: Absent: JVD, Lymphadenopathy, Left Carotid bruit, Right Carotid bruit, Tracheal deviation Cardiac: Present: Reg Rate and Rhythm, Normal S1 and S2, No Murmur Lungs: Present: Normal Breath Sounds, No Wheeze, Rales, Rhonchi Neuro: Present: Alert and responsive, No focal deficits noted, Cranial nerves grossly intact, Motor nerves grossly intact, Sensory nerves grossly intact Abdomen: Present: Soft, Non-tender. Absent: Hepatosplenomegaly, Masses Vascular: Present: Normal capillary refill, Pulse, normal. Absent: Clubbing, Cyanosis, Edema Skin: Present: No rashes noted on visualized skin Musculoskeletal: Present: No Chest Wall Tenderness Consult Discharge Plan - Plan Instructions: Vertigo (GEN), Peripheral Vascular Disorders (DC), Chronic Hypertension (DC), Dizziness (GEN) Referrals: Cindy Rashid DO [Primary Care Provider] - 08/16/16 3:00 pm aSlty Amado MD [Partnered Physician] - (Order placed will be contacted in 5 mo for appointment 6 months with carotid duplex.) Prescriptions: Meclizine [Antivert] 25 mg PO TID PRN #10 tablet PRN Reason: Dizziness
[2016-08-09] MEDS: Metoprolol XL (24 HR) Succ 25 MG TAB.ER.24H PO SCH (09:33)
[2016-08-09] MEDS: amLODIPine 5 MG TABLET PO SCH (09:33)
[2016-08-09] MEDS: Lisinopril 20 MG TABLET PO SCH (09:33)
[2016-08-09] MEDS: Aspirin Enteric Coated 81 MG Tablet PO SCH (09:33)
[2016-08-09] MEDS: Loratadine 10 MG TABLET PO SCH (09:33)
[2016-08-09] MEDS: Fluticasone Propionate Nasal 50 MCG/SPRAY BOTTLE NS SCH (09:34)
--- NOTE | 2016-08-09 10:20 | Discharge Summary ---
Date of Encounter: 08/09/16 Time of Encounter: 10:00 - Discharge Diagnosis (1) DVT prophylaxis Priority: Secondary Status: Acute (2) Dizziness Priority: Primary Status: Acute (3) Hypertension Priority: Secondary Status: Acute Qualifiers: Hypertension type: essential hypertension Qualified Code(s): I10 - Essential (primary) hypertension (4) Mitral valve stenosis Priority: Secondary Status: Acute Qualifiers: Cardiac valve disease etiology: nonrheumatic Qualified Code(s): I34.2 - Nonrheumatic mitral (valve) stenosis (5) Renal insufficiency Priority: Secondary Status: Acute (6) Carotid stenosis Priority: Primary Status: Chronic Qualifiers: Laterality: left Qualified Code(s): I65.22 - Occlusion and stenosis of left carotid artery - Discharge Medications Prescriptions: Meclizine [Antivert] 25 mg PO TID PRN #10 tablet PRN Reason: Dizziness Home Medications: Amlodipine [Norvasc] 5 mg PO DAILY 08/07/16 [History] Aspirin [Lo-Dose Aspirin EC] 81 mg PO DAILY 08/07/16 [History] Lisinopril [Zestril] 40 mg PO DAILY 08/07/16 [History] Metoprolol XL (24 HR) Succ [Toprol Xl] 25 mg PO DAILY 08/07/16 [History] Vitamin E Acetate [Vitamin E] 400 unit PO DAILY 08/07/16 [History] Meclizine [Antivert] 25 mg PO TID PRN #10 tablet 08/09/16 [Rx] Allergies/Adverse Reactions: Allergies Sulfa (Sulfonamide Antibiotics) Allergy (Verified 08/07/16 11:05) Hives Procedures/tests Complete & Pending: Procedures Performed prior 72 hours Category Date Time Status EV carotid duplex imaging BI Routine Y 08/08/16 10:00 Completed EV echocardiogram Routine Y 08/08/16 09:00 Completed Date of admission: 08/07/16 15:16 Primary care physician: Cindy Rashid Consults: 08/08/16 14:17 Consult to Vascular Surgery [CONS] Routine Consulting Provider: Vascular Surgery Nani Reason for Consult: Carotid stenosis Call Completed: Yes Discharging clinician: Delmis Horan Anticipated date of discharge: 08/09/16 - Patient Status Disposition: Home, Self-Care Condition: Good Functional capacity at discharge: independent ambulation Overall status at discharge: patient is back to baseline - Discharge Instructions Follow Up With: Cindy Rashid DO [Primary Care Provider] - Salty Amado MD [Partnered Physician] - (6 months with carotid duplex.) - Diet and Activity Activity: increase activity as tolerated Diet: regular diet Interval History: Ms. Soriano is a 71 year old female with a history of HTN and mitral valve stenosis. She sees cardiology at [place], but has not been there for at least 3 years. Pt presents to ED today with c/o dizziness x 2 days and vomiting x 1 today due to dizziness. All imaging studies done in ED are negative, except CXR shows mild enlargement of cardiac silhouette, but no prior studies to compare it to. Pt was recently treated for sinusitis with amoxicillin by PCP. She has had PND, but denies frontal sinus tenderness, cough, castro, sob, or chest pain, no peripheral edema. Braden TM with good light reflex and no fluid level. Hospital course: Ms. Soriano is a 71 year old female admitted for dizziness, she describe as vertigo. No LOC. Pt has URI recently. Pt was placed on cardiac monitoring. Echo and duplex carotid were done. Result shows Lt carotid stenosis, vascular surgeon saw pt and recommend continue ASA treatment. I saw and examined pt today. She is awake, alert, oriented x 3. In NAD. Vitals are stable. No further dizziness, nausea, vomiting after admission. Will discharge pt home with meclizine PRN. Pt will f/u with PCP and vascular surgeon as outpatient. - Time Spent with Patient Total time spent providing and/or coordinating discharge services: 40 min Greater than 30 minutes - Constitutional Vitals: Temp Pulse Resp BP Pulse Ox 97.7 F 59 17 153/82 98 08/09/16 08:09 08/09/16 08:09 08/09/16 08:09 08/09/16 08:09 08/09/16 08:09 General appearance: Present: cooperative, A&O X 3, pleasant, no acute distress - Head Head exam: Present: atraumatic, normocephalic - Eye Eye exam: Present: PERRL, conjuntiva pink, sclera anicteric Pupils: Present: PERRL - Neck Neck exam general surgery: Present: supple, trachea midline. Absent: lymphadenopathy - Respiratory Respiratory exam: Present: CTAB. Absent: accessory muscle use, rales, rhonchi, wheezes - Cardiovascular Cardiovascular exam: Present: RRR, +S1, +S2. Absent: diastolic murmur, gallop, rubs, systolic murmur - GI/Abdominal GI/Abdominal exam: Present: normal bowel sounds, soft, no peritoneal signs. Absent: distended, tenderness - Extremities Exam Extremities exam: Present: warm, radial pulses palpable and symetrical. Absent : calf tenderness, cyanotic, pedal edema - Neurological Exam Neurological exam: Present: CN II-XII intact, oriented X3, no focal deficits. Absent: pronater drift, facial droop, speech deficit - Skin Skin exam: Present: dry, intact
--- NOTE | 2016-08-10 05:58 | Electrocardiograph Report ---
[place] [id number] Test Date: 2016-08-07 Pat Name: Gloria Soriano Department: 105 Room: 3B16 Gender: F Pharmacy Order Entry Technician: : 1945 Requested By: Triston Foss Order Number: [id number] Reading MD: Ivan Gonzalez MD Measurements Intervals [place] Rate: 69 P: 49 VA: 168 QRS: -7 QRSD: 90 T: 31 QT: 397 QTc: 416 Interpretive Statements SINUS RHYTHM Electronically Signed On 08-10-2016 5:56:54 EST by Ivan Gonzalez MD
== END 2016-08-09 11:07 | disposition home or self-care (01) ==
LOC: 3BNU 10:59 → EMEROO 10:59 → SUATTDRO 15:16 → 3BNU 16:04
PROVIDERS: ADMIT Internal Medicine; ATTEND Internal Medicine